=== PATIENT | male | born 1975 | race Caucasian/White ===

== ENCOUNTER 2018-01-11 18:14 | Emergency (ER) | payer OTHER ==
[2018-01-11 18:44] VITALS: RESP 16
--- NOTE | 2018-01-11 19:08 | XR ---
EXAMINATION TYPE: XR wrist complete RT DATE OF EXAM: 01/11/2018 CLINICAL HISTORY: Increasing wrist pain. TECHNIQUE: Frontal, lateral, scaphoid, and oblique images of the right wrist are obtained. COMPARISON: None FINDINGS: There is no acute fracture/dislocation evident in the right wrist. The joint spaces in th e right wrist appear within normal limits. The overlying soft tissue appears unremarkable. IMPRESSION: There is no acute fracture or dislocation in the right wrist.
--- NOTE | 2018-01-11 19:34 | ED ---
Upper Extremity HPI - General Chief Complaint: Extremity Injury, Upper Stated Complaint: rt wrist pain Time Seen by Provider: 01/11/18 18:41 Source: patient, RN notes reviewed, old records reviewed Mode of arrival: ambulatory Limitations: no limitations - History of Present Illness Initial Comments: is a 42-year-old male presents emergency department 200 bright wrist pain. He reports it's mainly over the radial aspect of the wrist. He states it seems worse with range of motion of his thumb. 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 He is right-handed. He states that he was told he may have carpal tunnel. He denies any numbness or tingling in the hand. Patient states that the pain is worse after he works for long hours. - Related Data Home Medications Medication Instructions Recorded Confirmed Loratadine [Claritin] 10 mg PO DAILY PRN 01/11/18 01/11/18 Allergies Allergy/AdvReac Type Severity Reaction Status Date / Time No Known Allergies Allergy Verified 01/11/18 19:09 Review of Systems ROS Statement: Those systems with pertinent positive or pertinent negative responses have been documented in the HPI. ROS Other: All systems not noted in ROS Statement are negative. Past Medical History Past Medical History: No Reported History History of Any Multi-Drug Resistant Organisms: None Reported Past Surgical History: No Surgical Hx Reported Past Psychological History: No Psychological Hx Reported Smoking Status: Current every day smoker Past Alcohol Use History: Rare Past Drug Use History: None Reported General Exam - General Exam Comments Initial Comments: 42-year-old male. Alert and oriented. No acute distress. Limitations: no limitations General appearance: alert, in no apparent distress Head exam: Present: atraumatic, normocephalic, normal inspection Eye exam: Present: normal appearance, PERRL, EOMI. Absent: scleral icterus, conjunctival injection, periorbital swelling ENT exam: Present: normal exam Neck exam: Present: normal inspection. Absent: tenderness, meningismus, lymphadenopathy Respiratory exam: Present: normal lung sounds bilaterally. Absent: respiratory distress, wheezes, rales, rhonchi, stridor Cardiovascular Exam: Present: regular rate, normal rhythm, normal heart sounds. Absent: systolic murmur, diastolic murmur, rubs, gallop, clicks Right Elbow exam: Present: normal inspection, full ROM Forearm Wrist exam: Present: normal inspection, full ROM Hand Wrist exam: Present: normal inspection, full ROM, other (pain with Emma's test. Positive for de Quervain's tenosynovitis.) Neuro motor exam: Present: wrist extension intact, thumb opposition intact, thumb IP flexion intact, thumb adduction intact, fingers 2-5 abduction intact Vascular: Present: normal capillary refill Back exam: Present: normal inspection Neurological exam: Present: alert, oriented X3, CN II-XII intact Course Vital Signs 01/11/18 01/11/18 18:43 19:52 Temperature 97.6 F 98.0 F Pulse Rate 77 100 Respiratory 16 16 Rate Blood Pressure 144/94 140/90 O2 Sat by Pulse 98 98 Oximetry Medical Decision Making - Medical Decision Making 42-year-old male presents for his family of the right wrist pain. He reports is chronic. Worse after he does repetitive movements at work. Patient has a positive Emma test. Positive for de Quervain's tenosynovitis. Patient is placed in a thumb spica splint. Discussed taking anti-inflammatory medication. Discussed return parameters. All questions answered. Close orthopedic follow-up. Disposition Clinical Impression: Wrist strain Disposition: HOME SELF-CARE Condition: Good Instructions: Tendinitis (ED), Wrist Sprain (ED) Additional Instructions: Patient has a follow-up with orthopedic hand specialist for de Quervain's tenosynovitis. Recommended purchasing a thumb spica splint. Anti-inflammatory medicine such as Motrin and Tylenol for pain. Rest, ice, and elevate. Is patient prescribed a controlled substance at d/c from ED?: No If prescribed controlled substance>3 days was MAPS reviewed?: No When asked, does pt state using other controlled substances?: No Referrals: None,Stated [Primary Care Provider] - 1-2 days Sebastian Andrews DO [Doctor of Osteopathic Medicine] - 1-2 days Time of Disposition: 19:30
[2018-01-11 19:52] VITALS: BP 140/90; PULSE 100; TEMP 98
== END 2018-01-11 19:56 | disposition home or self-care (01) ==
LOC: EC 18:14
DX: S66.911A Strain of unspecified muscle, fascia and tendon at wrist and hand level, right hand, initial encounter (principal); F17.200 Nicotine dependence, unspecified, uncomplicated; X50.3XXA Overexertion from repetitive movements, initial encounter; Y92.63 Factory as the place of occurrence of the external cause
CPT/HCPCS: 29125; 99284

== ENCOUNTER 2023-08-19 14:03 | Inpatient (IN) | payer OTHER ==
[2023-08-19] MEDS ORDERED: SODIUM CHLORIDE 0.9% 1,000 ML IV ONE (15:15)
[2023-08-19] MEDS ORDERED: VERAPAMIL 2.5 MG/ML 2 ML AMP ONE (15:55)
[2023-08-19] MEDS ORDERED: LIDOCAINE 1% INJ 10MG/ML (20 ML MDV) ONE (15:55)
[2023-08-19] MEDS ORDERED: HEPARIN SODIUM 1,000 UN/ML (10ML VL) ONE (16:22)
[2023-08-19] MEDS ORDERED: MIDAZOLAM 2 MG/2 ML VIAL IVP ONE (16:26)
[2023-08-19] MEDS ORDERED: HEPARIN SODIUM 1,000 UN/ML (10ML VL) IV ONE (16:33)
[2023-08-19] MEDS ORDERED: MAG HYDROX/AL HYDROX/SIMETH 30 ML CUP PO PRN (16:56)
[2023-08-19] MEDS ORDERED: ZOLPIDEM 5 MG TAB PO PRN (16:56)
[2023-08-19] MEDS ORDERED: NITROGLYCERIN SL TABS 0.4 MG TAB SUBLINGUAL PRN (16:56)
[2023-08-19] MEDS ORDERED: ATROPINE SULFATE 0.1 MG/ML 10ML SYRINGE IV PRN (16:56)
[2023-08-19] MEDS ORDERED: RX INFO: IV CONTRAST WAS GIVEN 1 EACH MISC MISCELLANE PRN (16:56)
[2023-08-19] MEDS ORDERED: IOPAMIDOL-370 100ML BTL INJ ONE (16:59)
[2023-08-19] MEDS ORDERED: SODIUM CHLORIDE 0.9% 1,000 ML in EMPTY BAG 1 BAG IV SCH (17:00)
[2023-08-19] MEDS ORDERED: TIROFIBAN BOLUS 12.5MG/250 ML BAG IV ONE (17:00)
[2023-08-19] MEDS: TIROFIBAN 12.5MG-250ML NS 250 ML IV SCH (17:03)
--- NOTE | 2023-08-19 17:03 | P.PCN ---
Date of Procedure: 08/19/23 Operative Findings: PERCUTANEOUS CORONARY INTERVENTION Performing physician Messi Price M.D. Procedure Performed: 1. Aspiration thrombectomy from the left circumflex coronary artery 2. Adjunctive use of intravascular imaging Indication: This is a 47-year-old gentleman who is known to have CAD with prior stenting of the left circumflex few months ago in [place] stopped taking all his medications including dual antiplatelet therapy and he presented to the hospital with a chest discomfort and ruled in for acute coronary event. He underwent a heart catheterization that revealed occluded left circumflex from the ostium and that was a dominant left circumflex with a large thrombus burden. He was brought today to undergo an intervention Approach: Right radial artery Complications: None Level of Sedation: Moderate with a sedation length of 36 minutes Procedure Discussion: After obtaining an informed consent the patient was brought to the cardiac laborer hide house. The right radial artery sheath was exchanged over an 018 wire into a new sheath. Anticoagulation was initiated using heparin with continuous ACT monitoring. Subsequently I did engage the left main using a CLS 3 guiding catheter. Attempting wire into the circumflex initially was difficult with the wire going to the large OM branch which I left the wire at. Subsequently I got another wire and I was able to wire the left circumflex coronary artery and adva nce a wire to the OM branch of the left circumflex. Subsequently I did an aspiration thrombectomy with the extraction of large thrombus burden and restore flow to the left circumflex coronary artery. Intravascular ultrasound was performed and showed that the stent in the very proximal portion of the left circumflex appears to be somewhat not well expanded. The artery diameter was about 4 mm. At that point I did decide with a large thrombus burden to start the patient on Aggrastat and keep the patient on it for the next 12-16 hours and bring the patient back tomorrow to take second look. The patient was a full understanding and agreement Postprocedure Management: 1. Continue dual antiplatelet therapy along with high intensity statin along wit h beta aldo 2. Aggrastat to be started 3. Follow-up with the patient
[2023-08-19] MEDS: METOPROLOL TARTRATE 25 MG TAB PO SCH (20:48)
[2023-08-19] MEDS: ATORVASTATIN 80 MG TAB PO SCH (20:48)
[2023-08-19] MEDS: TICAGRELOR 90 MG TAB PO SCH (20:48)
[2023-08-20] MEDS: TIROFIBAN 12.5MG-250ML NS 250 ML IV SCH ×2 (02:50→19:55)
[2023-08-20] MEDS: TICAGRELOR 90 MG TAB PO SCH ×2 (08:00→20:03)
[2023-08-20] MEDS ORDERED: ASPIRIN 325 MG TAB PO STA (08:03)
[2023-08-20] MEDS ORDERED: ATORVASTATIN 80 MG TAB PO STA (08:04)
[2023-08-20] MEDS: METOPROLOL TARTRATE 25 MG TAB PO SCH ×2 (08:12→20:03)
[2023-08-20] MEDS: ASPIRIN 81 MG PO SCH (08:24)
[2023-08-20 09:48] LABS: Basophils % (A) 0 %; Eosinophils # (A) 0.1 k/uL (0-0.7); Eosinophils % (A) 1 %; HCT 49.2 % (39.0-53.0); HGB 16.3 gm/dL (13.0-17.5); Lymphocytes # (A) 1.7 k/uL (1.0-4.8); Lymphocytes % (A) 21 %; MCH 30.7 pg (25.0-35.0); MCHC 33.2 g/dL (31.0-37.0); MCV 92.6 fL (80.0-100.0); Mean Platelet Volume 7.4; Monocytes # (A) 0.6 k/uL (0-1.0); Monocytes % (A) 8 %; Neutrophils # (A) 5.5 k/uL (1.3-7.7); Neutrophils % (A) 68 %; Platelet Count 255 k/uL (150-450); RBC 5.32 m/uL (4.30-5.90); RDW 12.8 % (11.5-15.5); WBC 8.1 k/uL (3.8-10.6)
[2023-08-20 09:52] LABS: ALT 36 U/L (4-49); AST 125 U/L (17-59); African American GFR (CKD) >90 (>60 ml/min/1.73 sqM); Albumin 3.7 g/dL (3.5-5.0); Alkaline Phosphatase 83 U/L (38-126); Anion Gap 8 mmol/L; Blood Urea Nitrogen 13 mg/dL (9-20); Calcium 9.3 mg/dL (8.4-10.2); Carbon Dioxide 25 mmol/L (22-30); Chloride 106 mmol/L (98-107); Glucose 91 mg/dL (74-99); Non-African American GFR(CKD) >90 (>60 ml/min/1.73 sqM); Potassium 4.3 mmol/L (3.5-5.1); Sodium 139 mmol/L (137-145); Total Bilirubin 0.8 mg/dL (0.2-1.3); Total Protein 6.5 g/dL (6.3-8.2)
[2023-08-20] MEDS ORDERED: HEPARIN SODIUM 1,000 UN/ML (10ML VL) ONE (10:19)
[2023-08-20] MEDS ORDERED: VERAPAMIL 2.5 MG/ML 2 ML AMP ONE (10:19)
[2023-08-20] MEDS ORDERED: IV FLUID CONTINUATION 750 ML IV ONE (10:49)
[2023-08-20] MEDS ORDERED: MIDAZOLAM 2 MG/2 ML VIAL IVP ONE (10:50)
--- NOTE | 2023-08-20 10:50 | PN ---
PROGRESS NOTE SUBJECTIVE: Mr. Leary is doing well this morning. He had a cardiac cath which revealed high thrombus burden, total occlusion of ostial circumflex vein. He had previous stents, but he did not take his dual antiplatelet therapy. The patient was placed on an Aggrastat drip. He is going for a repeat cardiac cath, possible intervention of circumflex, and the proximal end of the stent has mild narrowing. OBJECTIVE: VITAL SIGNS: Stable,. Right radial site is clean and dry. HEART: S1 and S2 heard normally. LUNGS: Clear. ABDOMEN: Unchanged. EXTREMITIES: Lower extremities unchanged. We discussed the importance of taking his medications regularly and being compliant and to follow up also on a regular basis. MMODL / IJN: [id number] /
[2023-08-20] MEDS ORDERED: LIDOCAINE 2% (PF) 20 MG/ML 5 ML VIAL SQ ONE (10:54)
[2023-08-20] MEDS ORDERED: VERAPAMIL SYRINGE (5 MG/10 ML) INTRAARTER ONE (10:55)
[2023-08-20] MEDS: HEPARIN SODIUM 1,000 UN/ML (10ML VL) IVP ONE ×3 (11:02→11:35)
[2023-08-20] MEDS ORDERED: niCARdipine 25 MG/10 ML VIAL ONE (11:15)
[2023-08-20] MEDS ORDERED: niCARdipine Syringe (1,000 mcg/10 mL) INTRACORON ONE (11:17)
[2023-08-20] MEDS ORDERED: NITROGLYCERIN 1000MCG/10ML SYRINGE INTRACORON ONE (11:17)
[2023-08-20] MEDS ORDERED: IOPAMIDOL-370 100ML BTL IVP ONE (11:21)
[2023-08-20] MEDS ORDERED: RX INFO: IV CONTRAST WAS GIVEN 1 EACH MISC MISCELLANE PRN (11:27)
[2023-08-20] MEDS ORDERED: ATROPINE SULFATE 0.1 MG/ML 10ML SYRINGE IV PRN (11:27)
[2023-08-20] MEDS ORDERED: NITROGLYCERIN SL TABS 0.4 MG TAB SUBLINGUAL PRN (11:27)
[2023-08-20] MEDS ORDERED: MAG HYDROX/AL HYDROX/SIMETH 30 ML CUP PO PRN (11:27)
[2023-08-20] MEDS ORDERED: ZOLPIDEM 5 MG TAB PO PRN (11:27)
[2023-08-20] MEDS ORDERED: SODIUM CHLORIDE 0.9% 1,000 ML in EMPTY BAG 1 BAG IV SCH (11:30)
--- NOTE | 2023-08-20 11:37 | P.PCN ---
Date of Procedure: 08/20/23 Operative Findings: PERCUTANEOUS CORONARY INTERVENTION Performing physician Messi Price M.D. Procedure Performed: 1. Successful stenting of the stenting of the mid LCx using 3.5 x 18 mm Xience drug-eluting stent with an excellent angiographic results. 2. Successful balloon angioplasty of the proximal stented left circumflex using 4 mm x 15 mm noncompliant balloon 3. Adjunctive use of IVUS 4. Ultrasound guided access of the right radial artery Indication: The patient is a 47-year-old gentleman who underwent in the past stenting of the left circumflex and he stopped taking all his medications. He presented to the emergency with a chest discomfort and he underwent a heart catheterization after he was ruled in for acute coronary syndrome. The heart catheterization revealed occluded left circumflex was a large thrombus burden. He was placed on Aggrastat and he was brought today to undergo a second look angiogram with possible angioplasty Approach: Right radial artery Complications: None Level of Sedation: Moderate with a sedation length of 20 minutes Procedure Discussion: After obtaining an informed consent the patient was brought to the cardiac catheter finisher and inspector. The right radial artery was cannulated using puncture technique under ultrasound guidance an echo showing her passed easily then I placed a 6-Cypriot sheath in the right radial artery. Anticoagulation was initiated using heparin with continuous ACT monitoring. Subsequently I did engage the left main using a CLS 3 guide catheter. After that I did wire the left circumflex using 2 wires. The first wire was placed in the AV groove left circumflex and the second wire was placed and second OM branch of the left circumflex. Please note that an angiogram was performed before. We wired the left circumflex and showed that her flow into second obtuse marginal branch and overall better flow in the left circumflex coronary artery artery. There was a hazy/thrombus in the mid left circumflex coronary artery by the bifurcation of the second obtuse marginal branch. For that reason I wired both the left circumflex and OM 2. I did intravascular ultrasound and that showed a diameter of the left circumflex in the AV groove around 3 mm. I deployed 3.5 x 18 mm across OM 2. Subsequently I postdilated the stent in the proximal left circumflex is a deformity meters noncompliant balloon. Final angiogram showed excellent angiographic results and the procedure was completed was no complication Postprocedure Management: 1. Dual antiplatelet therapy 2. Aggressive cholesterol control 3. Risk factors modification
[2023-08-20 13:27] VITALS: BMI 27.1
--- NOTE | 2023-08-20 14:21 | P.HPIM ---
History of Present Illness H&P Date: 08/20/23 History of present illness; patient is 47-year-old gentleman with past medical h istory significant for coronary artery disease who presented to [facility] for chest pain. Patient history of prior stent placement in [facility] in [place] and patient is noncompliant with medications. Patient was worked up in [facility], was ruled in for acute coronary syndrome, was transferred to [facility] for cardiac cath. Patient underwent a cardiac cath showing occluded left circumflex from the ostium and that was a dominant left circumflex with a large thrombus burden, patient underwent aspiration thrombectomy and patient was started on Aggrastat, with plans to undergo repeat cardiac cath after 12-16 hours. Patient was admitted to internal medicine service REVIEW OF SYSTEMS: CONSTITUTIONAL: No fever, no malaise, no fatigue. HEENT: No recent visual problems or hearing problems. Denied any sore throat. CARDIOVASCULAR: No chest pain, orthopnea, PND, no palpitations, no syncope. PULMONARY: No shortness of breath, no cough, no hemoptysis. GASTROINTESTINAL: No diarrhea, no nausea, no vomiting, no abdominal pain. NEUROLOGICAL: No headaches, no weakness, no numbness. HEMATOLOGICAL: Denies any bleeding or petechiae. GENITOURINARY: Denies any burning micturition, frequency, or urgency. MUSCULOSKELETAL/RHEUMATOLOGICAL: Denies any joint pain, swelling, or any muscle pain. ENDOCRINE: Denies any polyuria or polydipsia. The rest of the 14-point review of systems is negative. PHYSICAL EXAMINATION: GENERAL: The patient is alert and oriented x3, not in any acute distress. Well developed, well nourished. HEENT: Pupils are round and equally reacting to light. EOMI. No scleral icterus. No conjunctival pallor. Normocephalic, atraumatic. No pharyngeal erythema. No thyromegaly. CARDIOVASCULAR: S1 and S2 present. No murmurs, rubs, or gallops. PULMONARY: Chest is clear to auscultation, no wheezing or crackles. ABDOMEN: Soft, nontender, nondistended, normoactive bowel sounds. No palpable organomegaly. MUSCULOSKELETAL: No joint swelling or deformity. EXTREMITIES: No cyanosis, clubbing, or pedal edema. NEUROLOGICAL: Gross neurological examination did not reveal any focal deficits. SKIN: No rashes. Assessment and plan Acute coronary Syndrome Large thrombotic burden left circumflex status post aspiration thrombectomy History of coronary artery disease Monitor vital signs Monitor CBC Monitor CMP Continue telemetry monitoring Trend troponins. Continue with aggrastat Continue aspirin and brilinta Continue Lipitor Cardiology following, planning repeat cardiac cath today Labs and medication were reviewed.. Continue same treatment. Continue with symptomatic treatment. Resume home medication. Monitor labs and vitals. DVT and GI prophylaxis. Further recommendations as per clinical course of the patient Dictation was produced using [employer] dictation software. please excuse any grammatical, word or spelling errors. Past Medical History Past Medical History: No Reported History History of Any Multi-Drug Resistant Organisms: None Reported Past Surgical History: Heart Catheterization Additional Past Surgical History / Comment(s): December 2022 in [facility] Past Psychological History: No Psychological Hx Reported Smoking Status: Current every day smoker Past Alcohol Use History: Rare Past Drug Use History: None Reported - Past Family History Mother History Unknown: Yes Father History Unknown: Yes Medications and Allergies Home Medications Medication Instructions Recorded Confirmed Type No Known Home Medications 08/19/23 08/19/23 History Allergies Allergy/AdvReac Type Severity Reaction Status Date / Time No Known Allergies Allergy Verified 01/11/18 19:09 Physical Exam Vitals: Vital Signs Temp Pulse Pulse Resp BP BP Pulse Ox 08/20/23 07:59 98.1 F 63 17 108/70 97 08/20/23 02:00 98.3 F 69 19 115/74 98 08/19/23 20:41 78 112/71 98 08/19/23 20:00 98.1 F 83 17 123/74 97 08/19/23 19:41 84 123/74 97 08/19/23 18:41 81 162/100 97 08/19/23 18:11 84 158/92 99 08/19/23 17:41 69 158/92 99 08/19/23 17:30 81 16 08/19/23 17:26 66 173/96 99 08/19/23 15:59 98.3 F 62 16 158/91 100 Intake and Output 08/19/23 08/20/23 08/20/23 22:59 06:59 14:59 Intake Total 291 Output Total 600 Balance -309 Intake: IV 51 Oral 240 Output: Urine 600 Other: Voiding Method Toilet Toilet # Voids 2 2 Weight 98.6 kg Results CBC & Chem 7: 08/20/23 09:27 08/20/23 09:27
[2023-08-20] MEDS: ATORVASTATIN 80 MG TAB PO SCH (20:03)
[2023-08-21 08:24] VITALS: TEMP 97.4
[2023-08-21] MEDS: TICAGRELOR 90 MG TAB PO SCH (08:51)
[2023-08-21] MEDS: METOPROLOL TARTRATE 25 MG TAB PO SCH (08:51)
[2023-08-21] MEDS: ASPIRIN 81 MG PO SCH (08:51)
[2023-08-21 09:42] LABS: African American GFR (CKD) >90 (>60 ml/min/1.73 sqM); Non-African American GFR(CKD) >90 (>60 ml/min/1.73 sqM)
[2023-08-21 11:49] VITALS: BP 120/72; PULSE 52; RESP 18
[2023-08-21] MEDS: TIROFIBAN 12.5MG-250ML NS 250 ML IV SCH (11:49)
--- NOTE | 2023-08-21 13:19 | P.DS ---
Providers Date of admission: 08/19/23 15:14 Expected date of discharge: 08/21/23 Attending physician: Tahir Encarnacion MD Consults: 08/19/23 16:56 Consult Physician Routine Consulting Provider: Nicole Bernard Consult Reason/Comments: Post Interventional patient Do you want consulting provider notified?: Already Contacted 08/20/23 11:27 Consult Physician Routine Consulting Provider: Nicole Bernard Consult Reason/Comments: Post Interventional Patient Do you want consulting provider notified?: Already Contacted Primary care physician: Stated None Hospital Course: Discharge diagnoses; Status post stenting of mid left circumflex Acute coronary Syndrome Large thrombotic burden left circumflex status post aspiration thrombectomy History of coronary artery disease Hospital course; patient is 47-year-old gentleman with past medical history significant for coronary artery disease who presented to [facility] for chest pain. Patient history of prior stent placement in [facility] in [place] and patient is noncompliant with medications. Patient was worked up in [facility], was ruled in for acute coronary syndrome, was transferred to [facility] for cardiac cath. Patient underwent a cardiac cath showing occluded left circumflex from the ostium and that was a dominant left circumflex with a large thrombus burden, patient underwent aspiration thrombectomy and patient was started on Aggrastat, with plans to undergo repeat cardiac cath a fter 12-16 hours. Patient was admitted to internal medicine service 08/21. Patient seen and examined. Patient underwent cardiac cath Successful stenting of the stenting of the mid LCx using 3.5 x 18 mm Xience drug-eluting stent ,. Successful balloon angioplasty of the proximal stented left circumflex using 4 mm x 15 mm noncompliant balloon. Cardiology evaluated the patient, recommended discharging patient on 2 tablets of aspirin 81 mg daily and Plavix 75 mg daily. Patient was a transfer from [facility], patient med rec was not updated. Patient home medications will be reevaluated the patient for discharge to make sure he is on the right medications for his coronary disease PHYSICAL EXAMINATION: GENERAL: The patient is alert and oriented x3, not in any acute distress. Well developed, well nourished. HEENT: Pupils are round and equally reacting to light. EOMI. No scleral icterus. No conjunctival pallor. Normocephalic, atraumatic. No pharyngeal erythema. No thyromegaly. CARDIOVASCULAR: S1 and S2 present. No murmurs, rubs, or gallops. PULMONARY: Chest is clear to auscultation, no wheezing or crackles. ABDOMEN: Soft, nontender, nondistended, normoactive bowel sounds. No palpable organomegaly. MUSCULOSKELETAL: No joint swelling or deformity. EXTREMITIES: No cyanosis, clubbing, or pedal edema. NEUROLOGICAL: Gross neurological examination did not reveal any focal deficits. SKIN: No rashes. Dictation was produced using [employer] dictation software. please excuse any grammatical, word or spelling errors. Patient Condition at Discharge: Good Plan - Discharge Summary Discharge Rx Participant: Yes New Discharge Prescriptions: New Aspirin 162 mg PO DAILY tab Discharge Medication List Aspirin 162 mg PO DAILY tab 08/21/23 [Rx] Follow up Appointment(s)/Referral(s): Messi Price MD [STAFF PHYSICIAN] - 1 Week Discharge Disposition: HOME SELF-CARE
--- NOTE | 2023-08-21 14:31 | P.PN ---
Subjective Progress Note Date: 08/21/23 This is Solis Stewart NP, I'm dictating on behalf of Dr. Lindo's H&P and A&P. Patient was interviewed and examined. Patient is a pleasant 47-year-old male who presented to the hospital with chest pain and a non-STEMI. Patient underwent PCI yesterday with stenting to the mid LCx, and coronary angioplasty to the proximal stent already present in the LCx. Patient did well with this intervention, and this morning reports no subjective chest pain, shortness of breath, or heart palpitations. Catheter insertion site is closed, pulses are good. GENERAL: Well-appearing, well-nourished and in no acute distress. NECK: Supple without JVD or thyromegaly. LUNGS: Breath sounds clear to auscultation bilaterally. Respiration equal and unlabored. No wheezes, rales or rhonchi. HEART: Regular rate and rhythm without murmurs, rubs or gallops. S1 and S2 heard. EXTREMITIES: Normal range of motion, no edema. No clubbing or cyanosis. Peripheral pulses intact and strong. VITALS: Temp 97.4, pulse 69, respirations 17, blood pressure 130/81, O2 saturation 98% on room air TELEMETRY: Normal sinus rhythm LABS: Creatinine 0.78 IMPRESSION: 1. Acute coronary syndrome 2. Status post stenting mid LCx with large thrombotic burden, angioplasty proximal LCx stent 3. History of coronary artery disease 4. Medication noncompliance PLAN: Continue currently prescribed cardiac medications. Patient reports the reason he stopped his meds previously was because he was started on welbutrin for smoking cessation and did not know the affect it could have on his mentation. Patient quit all his meds not knowing which one was causing him to be angry. Patient now understands the significance of taking his medications, and does state that he will take them as prescribed. From a cardiology standpoint patient be discharged at this time. Follow-up in the office as recommended. Thank you for allowing us to participate in the care of this patient. Objective - Vital Signs Vital signs: Vital Signs Temp 97.4 F L 08/21/23 07:00 Pulse 52 L 08/21/23 11:49 Resp 18 08/21/23 11:49 BP 120/72 08/21/23 11:49 Pulse Ox 99 08/21/23 11:49 FiO2 Intake & Output 08/20/23 08/21/23 08/21/23 18:59 06:59 18:59 Intake Total 1266 360 Balance 1266 360 Weight 98.6 kg Intake: IV 550 Oral 716 360 Other: Voiding Method Toilet Toilet Toilet # Voids 2 2 3 - Labs CBC & Chem 7: 08/20/23 09:27 08/21/23 08:34
== END 2023-08-21 14:10 | disposition home or self-care (01) | DRG 322 ==
LOC: PREOBSVTOIN 14:24 → 1SOBS 15:14 → 3SCARD 16:13
PROVIDERS: ADMIT Internal Medicine; ATTEND Internal Medicine
PROC: 3E033PZ Introduction of Platelet Inhibitor into Peripheral Vein, Percutaneous Approach (ICD-10-PCS; principal; 2023-08-19 17:15)
PROC: B240ZZ3 Ultrasonography of Single Coronary Artery, Intravascular (ICD-10-PCS; principal; 2023-08-19 17:15)
PROC: 02C03ZZ Extirpation of Matter from Coronary Artery, One Artery, Percutaneous Approach (ICD-10-PCS; principal; 2023-08-19 17:15)
PROC: 02703Z6 Dilation of Coronary Artery, One Artery, Bifurcation, Percutaneous Approach (ICD-10-PCS; 2023-08-20 09:00)
PROC: 027034Z Dilation of Coronary Artery, One Artery with Drug-eluting Intraluminal Device, Percutaneous Approach (ICD-10-PCS; 2023-08-20 09:00)
PROC: B241ZZ3 Ultrasonography of Multiple Coronary Arteries, Intravascular (ICD-10-PCS; 2023-08-20 09:00)
DX: I21.4 Non-ST elevation (NSTEMI) myocardial infarction (principal); I25.10 Atherosclerotic heart disease of native coronary artery without angina pectoris; T50.916A Underdosing of multiple unspecified drugs, medicaments and biological substances, initial encounter; F17.200 Nicotine dependence, unspecified, uncomplicated; Z91.128 Patient's intentional underdosing of medication regimen for other reason; Z71.6 Tobacco abuse counseling; Z95.5 Presence of coronary angioplasty implant and graft
CPT/HCPCS: 76937; 80053; 82565; 85025; 92978; 93454; 93799